=== PATIENT | female | born 1985 ===

== ENCOUNTER 2020-10-17 14:43 | Inpatient (IN) | payer MEDICAID, OTHER ==
[2020-10-17] MEDS ORDERED: LOPERAMIDE 2 MG CAP PO PRN (15:21)
[2020-10-17] MEDS ORDERED: ePHEDrine SULFATE 50 MG/1 ML INJ IV PRN ×3 (15:21→22:54)
[2020-10-17] MEDS ORDERED: TERBUTALINE 1 MG/1 ML INJ SUB-Q PRN (15:21)
[2020-10-17] MEDS ORDERED: METHYLERGONOVINE MALEATE 0.2 MG/ML VIAL IM PRN (15:21)
[2020-10-17] MEDS ORDERED: MINERAL OIL 30 ML ORAL LIQD PO PRN (15:21)
[2020-10-17] MEDS ORDERED: ACETAMINOPHEN 325 MG TAB PO PRN (15:21)
[2020-10-17] MEDS ORDERED: CARBOPROST TROMETHAMINE 250 MCG/1 ML INJ IM PRN (15:21)
[2020-10-17] MEDS ORDERED: miSOPROStol 200 MCG TAB PR PRN (15:21)
[2020-10-17] MEDS ORDERED: fentaNYL 100 MCG/2 ML INJ IV PRN (15:21)
[2020-10-17] MEDS ORDERED: BUTORPHANOL 2 MG/1 ML INJ IV PRN (15:21)
[2020-10-17] MEDS ORDERED: OXYTOCIN 10 UNIT/1 ML INJ IM PRN (15:21)
[2020-10-17] MEDS ORDERED: LACTATED RINGERS 1,000 ML IV SCH (15:30)
[2020-10-17] MEDS ORDERED: LIDOCAINE (2%) 20 MG/1 ML VIAL 20 ML MDV INFILTRATI ONE (15:45)
[2020-10-17] MEDS ORDERED: OXYTOCIN DRIP 30 UNITS/500 ML BAG IV SCH ×2 (16:00)
[2020-10-17] MEDS ORDERED: DINOPROSTONE 10 MG VAG SUPP VG ONE (16:30)
--- NOTE | 2020-10-17 16:42 | History and Physical Report ---
History of Present Illness Date of examination: 10/17/20 Date of admission: 10/17/20 15:21 Chief complaint: "I was sent here for an induction" History of present illness: 34 y/o presents to [facility] @ 41 wks for an IOL r/t postdates. She denies VB, LOF, and admits to active FM. Pt initiated her pnc at [facility] at 7 5/7 wks. She has a hx of GDM in 2014, trich 2020 with a neg MEAGHAN, umb hernia, cervical dysplasia RACQUEL I, and vit D def. Pt reports no surgies and an unremarkable social and family hx. She was admitted to L&D for an IOL. Her GBS is neg. Past History Past Medical History: other (umb hernia, GDM, VIT D DEF) Past Surgical History: no surgical history [employer] History: trichomonas, other (RACQUEL I Cervical dysplasia) Family/Genetic History: none Social history: no significant social history - Obstetrical History : 3 Medications and Allergies Allergies Allergy/AdvReac Type Severity Reaction Status Date / Time No Known Allergies Allergy Verified 07/30/14 07:00 Home Medications Medication Instructions Recorded Confirmed Last Taken Type Ferrous Sulfate [Iron 325 MG] 325 mg PO BID 10/17/20 10/17/20 10/16/20 History Vit-Fe Fumar-FA [ 1 tab PO QDAY 10/17/20 10/17/20 10/17/20 History Vitamin] Active Meds: Active Medications Acetaminophen (Acetaminophen 325 Mg Tab) 650 mg PO Q4H PRN PRN Reason: Pain, Mild (1-3) Butorphanol Tartrate (Butorphanol 2 Mg/1 Ml Inj) 2 mg IV Q2H PRN PRN Reason: Pain , Severe (7-10) Carboprost Tromethamine (Carboprost Tromethamine 250 Mcg/1 Ml Inj) 250 mcg IM ONCE PRN PRN Reason: Uterine Bleeding Ephedrine Sulfate (Ephedrine Sulfate 50 Mg/1 Ml Inj) 10 mg IV Q2M PRN PRN Reason: Hypotension Fentanyl (Fentanyl 100 Mcg/2 Ml Inj) 100 mcg IV Q2H PRN PRN Reason: Pain,Severe (7-10) LABOR PAIN Oxytocin/Sodium Chloride (Pitocin/Ns 30 Unit/500ml) 30 units in 500 mls @ 2 mls/hr IV TITR MEG; Protocol Lactated Ringer's (Lactated Ringers) 1,000 mls @ 125 mls/hr IV DIRECT EMG Oxytocin/Sodium Chloride (Pitocin/Ns 30 Unit/500ml) 30 units in 500 mls @ 40 mls/hr IV TITR MEG; Protocol Loperamide HCl (Loperamide 2 Mg Cap) 2 mg PO ONCE PRN PRN Reason: give with Hemabate Methylergonovine Maleate (Methylergonovine Maleate 0.2 Mg/Ml Vial) 0.2 mg IM ONCE PRN PRN Reason: Uterine Bleeding Mineral Oil (Mineral Oil 30 Ml Oral Liqd) 30 ml PO QHS PRN PRN Reason: Constipation Misoprostol (Misoprostol 200 Mcg Tab) 800 mcg IA ONCE PRN PRN Reason: Uterine Bleeding Oxytocin (Oxytocin 10 Unit/1 Ml Inj) 10 unit IM ONCE PRN PRN Reason: Uterine Bleeding Terbutaline Sulfate (Terbutaline 1 Mg/1 Ml Inj) 0.25 mg SUB-Q ONCE PRN PRN Reason: Hyperstimulation/Hypertonicity Review of Systems All systems: negative Eyes: deferred Ears, nose, mouth and throat: deferred Breasts: normal - Vital Signs Vital signs: Vital Signs Pulse BP 86 112/69 10/17/20 15:02 10/17/20 15:02 Temp Pulse Resp BP Pulse Ox 97.6 F 75 16 112/69 99 10/17/20 15:27 10/17/20 16:34 10/17/20 15:27 10/17/20 15:02 10/17/20 16:34 - Physical Exam Breasts: Positive: normal Abdomen: Positive: normal appearance, soft, normal bowel sounds Genitourinary (Female): Positive: normal external genitalia, normal perenium Vulva: both: normal Vagina: Positive: normal moisture Uterus: Positive: enlarged, normal contour, other (gravid) Adnexa: both: normal Anus/Rectum: Positive: normal perianal skin Extremities: Positive: normal - Obstetrical FHR: auscultation normal, category 1 Uterine Contraction Monitor Mode: External Cervical Dilatation: 1 (per nurse) Cervical Effacement Percentage: 50 station: -2 Uterine Contraction Pattern: Irregular Uterine Tone Measurement Phase: Resting Uterine Contraction Intensity: Mild Results All other labs normal. Assessment and Plan A: IUP@ 41 wks postdates Hx GDM Umb hernia Hx cervical dysplasia RACQUEL I Neg GBS P: Admit to L&D for cervidil IOL Continuos monitoring Pain med/Epidural prn Anticipate
[2020-10-17 16:59] LABS: Hematocrit 34.8 % (30.3-42.9); Hemoglobin 12.3 gm/dl (10.1-14.3); Mean Corpuscular HGB Conc 35 % (30-34); Mean Corpuscular Volume 93 fl (79-97); Platelet Count 239 K/mm3 (140-440); Red Blood Count 3.74 M/mm3 (3.65-5.03); Red Cell Distribution Width 13.9 % (13.2-15.2)
[2020-10-17] MEDS ORDERED: DINOPROSTONE 10 MG VAG SUPP VG STA (21:18)
[2020-10-17] MEDS ORDERED: NALOXONE 2 MG/2 ML INJ IV PRN ×2 (22:53→22:54)
--- NOTE | 2020-10-17 22:56 | Anesthesia Consultation ---
Anesthesia Consult and Med Hx Date of service: 10/17/20 - Airway ROM Head & Neck: Adequate Intubation Access Assessment: Good - Pulmonary Exam CTA: Yes - Cardiac Exam Cardiac Exam: RRR - Pre-Operative Health Status ASA Pre-Surgery Classification: ASA2 Proposed Anesthetic Plan: Epidural - Pulmonary Hx Smoking: No Hx Asthma: No Hx Respiratory Symptoms: No COPD: No Hx Pneumonia: No - Cardiovascular System Hx Hypertension: No Hx Heart Attack/AMI: No Hx Angina: No Hx Percutaneous Transluminal Coronary Angioplasty (PTCA): No Hx Cardia Arrhythmia: No Hx Pacemaker: No Hx Internal Defibrillator: No Hx Valvular Heart Disease: No Hx Heart Murmur: No Hx Peripheral Vascular Disease: No - Central Nervous System Hx Neuromuscular Disorder: No Hx Seizures: No CVA: No Hx Back Pain: No Hx Psychiatric Problems: No - Gastrointestinal Hx Ulcer: No Hx Gastroesophageal Reflux Disease: Yes - Endocrine Hx Renal Disease: No Hx End Stage Renal Disease: No Hx Cirrhosis: No Hx Liver Disease: No Hx Insulin Dependent Diabetes: No Hx Non-Insulin Dependent Diabetes: No Hx Thyroid Disease: No Hx Hypothyroidism: No Hx Hyperthyroidism: No - Hematic Hx Anemia: No Hx Sickle Cell Disease: No - Other Systems Hx Alcohol Use: Yes Hx Substance Use: No Hx Cancer: No Hx Obesity: No
[2020-10-17] MEDS ORDERED: fentaNYL-BUPIV 2 MCG/ML-0.125% 200 MCG/100 ML BAG EPIDURAL SCH ×2 (23:00)
--- NOTE | 2020-10-17 23:00 | Progress Note ---
Labor Epidural - Labor Epidural Start Time: 22:30 Stop Time: 22:35 Performed by:: STEFAN VEGAS Procedure: Patient is requesting a laboring epidural for laboring pain. Patient IDed, H&P reviewed, all questions and concerns were answered, and consent was signed. Timeout was performed at bedside. Patient in sitting position. Sterile prep and drape was performed. [3] ml of 1% lidocaine skin wheal at L[3]- L [4]. 18- gauge Tomas epidural needle was advanced to loss of resistance with saline technique 6cm. Negative CSF negative blood. Epidural catheter advanced to [10] centimeters. [NEGATIVE] Aspiration [NEGATIVE] test dose. Sterile dressing applied. Patient tolerated procedure.
[2020-10-18] MEDS ORDERED: LIDOCAINE (2%) 20 MG/1 ML VIAL 20 ML MDV INFILTRATI ONE (00:09)
[2020-10-18] MEDS ORDERED: LANOLIN/ZINC/DIMETHICONE (LANSINOH) 7 GM TP PRN (00:26)
[2020-10-18] MEDS ORDERED: PROMETHAZINE 25 MG TAB PO PRN (00:26)
[2020-10-18] MEDS ORDERED: ACETAMINOPHEN 325 MG TAB PO PRN (00:26)
[2020-10-18] MEDS ORDERED: diphenhydrAMINE 25 MG CAP PO PRN (00:26)
[2020-10-18] MEDS ORDERED: oxyCODONE /ACETAMINOPHEN 5-325MG TAB PO PRN (00:26)
[2020-10-18] MEDS ORDERED: MAGNESIUM HYDROXIDE (MOM) ORAL LIQD UDC PO PRN (00:26)
[2020-10-18] MEDS ORDERED: WITCH HAZEL/ GLYCERIN PAD TP PRN (00:26)
[2020-10-18] MEDS ORDERED: PROMETHAZINE 25 MG RECT SUPP PR PRN (00:26)
[2020-10-18] MEDS ORDERED: ONDANSETRON 4 MG/2 ML INJ IV PRN (00:26)
--- NOTE | 2020-10-18 00:30 | Procedure Note ---
OB Delivery Note - Delivery Date of Delivery: 10/18/20 Surgeon: DRU CHAVEZ JR Estimated blood loss: other (486cc QBL) - Vaginal Delivery presentation: vertex Delivery position: OA Intrapartum events: none Delivery induction: cervidil Delivery augmentation: rupture of membranes Delivery monitor: none Route of delivery: Delivery placenta: spontaneous Episiotomy: none Delivery laceration: 2nd degree Delivery repair: vicryl Anesthesia: local, intravenous, epidural Delivery comments: Spontaneous vaginal delivery of male at 2353. Weight 3540g. 20 inches. APGARS 8/9. EBL 486cc QBL. Fundus firm. Second perineal laceration repaired with 2-0 Vicryl. - Infant A at 1 minute: 8 at 5 minutes: 9 Infant Gender: Male
[2020-10-18] MEDS: IBUPROFEN 600 MG TAB PO SCH ×4 (07:02→23:56)
--- NOTE | 2020-10-18 12:50 | Post Anesthesia Evaluation ---
- Post Anesthesia Evaluation Patient Participated: Yes Airway Patent: Yes Stable Respiratory Function: Yes Nausea/Vomiting: No Temp > 96.8F: Yes Pain Manageable: Yes Adequeate Hydration: Yes Anesthesia Complications: No Block Receding Appropriately: Yes
[2020-10-18 14:20] LABS: Hemoglobin 9.8 gm/dl (10.1-14.3)
[2020-10-18] MEDS: FERROUS SULFATE 325 MG TAB PO SCH (23:56)
[2020-10-19] MEDS: IBUPROFEN 600 MG TAB PO SCH ×2 (05:30→12:45)
[2020-10-19] MEDS: FERROUS SULFATE 325 MG TAB PO SCH (12:45)
--- NOTE | 2020-10-19 13:06 | Progress Note ---
Assessment and Plan A: day 2 S/P . Anemia (asymptomatic). P: Discharge patient home today. Discussed with patient discharge instructions and warning signs. Advised patient to continue taking her vitamins and iron supplements at home. Advised patient to avoid intercourse, lifting, housework, and driving. Advised patient to follow up at [facility] office in 2 weeks. Patient voiced understanding of all instructions. Subjective - Subjective Date of service: 10/19/20 Principal diagnosis: day 2 S/P Interval history: Doing well; desires discharge home today. Patient reports: appetite normal, voiding normally, pain well controlled, flatus, ambulating normally, no dizzy ambulation, no nauseated [place]: doing well Objective - Vital Signs Latest vital signs: Vital Signs Temp Pulse Resp BP Pulse Ox Pulse Ox 10/19/20 08:50 100 10/19/20 07:44 97.4 F L 59 L 19 92/57 98 10/19/20 06:30 18 10/19/20 05:30 18 10/19/20 00:56 18 10/18/20 23:56 18 10/18/20 23:44 98.5 F 73 20 105/68 99 10/18/20 20:00 100 10/18/20 16:18 98.9 F 69 18 103/64 98 Intake and Output 10/18/20 10/19/20 10/19/20 23:59 07:59 15:59 Intake Total 840 240 Balance 840 240 Intake: Oral 240 120 Intake, Free Water 600 120 Other: Total, Intake Amount 240 120 # Voids Void 1 1 - Exam Cardiovascular: Present: Regular rate Lungs: Present: Clear to auscultation Abdomen: Present: normal appearance, soft, normal bowel sounds. Absent: distention, tenderness, guarding, rigidity Uterus: Present: normal, firm, fundal height below umbilicus. Absent: bogginess, tenderness Extremities: Present: normal. Absent: tenderness, edema - Labs Labs: Abnormal lab results 10/18/20 Range/Units 13:36 Hgb 9.8 L (10.1-14.3) gm/dl Hct 28.0 L D (30.3-42.9) %
--- NOTE | 2020-10-19 13:09 | Discharge Summary ---
Providers - Providers Date of Admission: 10/17/20 15:21 Date of discharge: 10/19/20 Attending physician: DRU CHAVEZ JR, MD Primary care physician: DRU CHAVEZ JR, MD Hospitalization Reason for admission: induction of labor Delivery: Episiotomy: none Laceration: none Other procedures: none complications: none Discharge diagnosis: IUP at term delivered [place] baby: male Pertinent studies: Labs Hospital course: Stable course Condition at discharge: Good Disposition: DC-01 TO HOME OR SELFCARE - Discharge Diagnoses (1) Term delivered Status: Acute (2) Anemia Status: Acute Plan - Provider Discharge Summary Activity: routine, no sex for 6 weeks, no heavy lifting 4 weeks, no strenuous exercise Diet: routine Instructions: routine Additional instructions: Continue taking your vitamins and iron supplements at home. Follow up at [facility] in 2 weeks. Call your doctor immediately for: * Fever > 100.5 * Heavy vaginal bleeding ( >1 pad per hour) * Severe persistent headache * Shortness of breath * Reddened, hot, painful area to leg or breast - Follow up plan Follow up: DRU CHAVEZ JR, MD [Primary Care Provider] - 14 Days Forms: [facility] Discharge Summary, Discharge Signature Page
[2020-10-19 13:40] VITALS: BP 126/83
== END 2020-10-19 14:40 | disposition home or self-care (01) | DRG 807 ==
LOC: TRG 14:43 → LD 14:45 → TRG 15:21 → LD 15:21 → OB 10-18 07:12
PROVIDERS: ADMIT Obstetrics & Gynecology; ATTEND Obstetrics & Gynecology
PROC: 10E0XZZ Delivery of Products of Conception, External Approach (ICD-10-PCS; principal; 2020-10-18)
PROC: 0KQM0ZZ Repair Perineum Muscle, Open Approach (ICD-10-PCS; 2020-10-18)
PROC: 3E0R3BZ Introduction of Anesthetic Agent into Spinal Canal, Percutaneous Approach (ICD-10-PCS; 2020-10-18)
PROC: 00HU33Z Insertion of Infusion Device into Spinal Canal, Percutaneous Approach (ICD-10-PCS; 2020-10-18)
PROC: 3E0P7VZ Introduction of Hormone into Female Reproductive, Via Natural or Artificial Opening (ICD-10-PCS; 2020-10-18)
DX: O48.0 Post-term pregnancy (principal); Z37.0 Single live birth; Z3A.41 41 weeks gestation of pregnancy; O99.62 Diseases of the digestive system complicating childbirth; K21.9 Gastro-esophageal reflux disease without esophagitis; O70.1 Second degree perineal laceration during delivery; O99.02 Anemia complicating childbirth; Z20.822 Contact with and (suspected) exposure to COVID-19
CPT/HCPCS: 36415; 59200; 85014; 85018; 85027; 86592; 86850; 86900; 86901; G0378; J0595; J7120; U0003